=== PATIENT | male | born 1960 | race American Indian/Alaskan Native ===

== ENCOUNTER 2016-09-14 21:48 | Emergency (ER) | payer OTHER ==
--- NOTE | 2016-09-15 02:09 | Emergency Department Report ---
ED Extremity Problem HPI - General Chief complaint: Extremity Problem,Nontraumatic Stated complaint: L LEG PAIN Time Seen by Provider: 09/15/16 01:25 Source: patient, family Mode of arrival: Ambulatory Limitations: No Limitations - History of Present Illness Initial comments: Patient here reports that he has left hip pain 2 days. Denies any trauma. Patient is 10 out of 10. He said he 2 different Tylenol 3 and a little relief she also said he took ibuprofen. Denies any nausea vomiting. Denies any fall. Pain feels achy in his left hip. 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 MD Complaint: joint paint Onset/Timin -: days(s) Location: left History of Same: No -: Yes arthralgia, No fever, No associated dyspnea, No associated chest pain Severity scale (0 -10): 10 Quality: aching Consistency: intermittent Improves with: immobilization, rest Worsens with: weight bearing, walking Associated Symptoms: arthralgias. denies: chest pain, shortness of breath, fever, myalgias, rash - Related Data Previous Rx's Medication Instructions Recorded Last Taken Type HYDROcodone/APAP 5-325 [[place] 1 each PO Q6HR PRN #12 tablet 09/15/16 Unknown Rx 5/325] Ibuprofen [Motrin] 600 mg PO Q8H PRN #15 tablet 09/15/16 Unknown Rx Allergies Allergy/AdvReac Type Severity Reaction Status Date / Time No Known Allergies Allergy Unverified 09/14/16 22:17 ED Review of Systems ROS: Stated complaint: L LEG PAIN Other details as noted in HPI Comment: All other systems reviewed and negative Constitutional: denies: chills, fever ENT: denies: ear pain, throat pain Respiratory: no symptoms reported Cardiovascular: denies: chest pain, palpitations, edema, syncope Gastrointestinal: denies: abdominal pain, nausea, vomiting Musculoskeletal: arthralgia. denies: back pain, joint swelling, myalgia Skin: denies: rash Neurological: denies: headache ED Past Medical Hx - Past Medical History Previous Medical History?: No - Surgical History Past Surgical History?: No - Family History Family history: no significant - Social History Smoking Status: Current Every Day Smoker Substance Use Type: None - Medications Home Medications: Home Medications Medication Instructions Recorded Confirmed Last Taken Type HYDROcodone/APAP 5-325 [[place] 1 each PO Q6HR PRN #12 tablet 09/15/16 Unknown Rx 5/325] Ibuprofen [Motrin] 600 mg PO Q8H PRN #15 tablet 09/15/16 Unknown Rx ED Physical Exam - General Limitations: No Limitations General appearance: alert, in no apparent distress - Head Head exam: Present: atraumatic, normocephalic, normal inspection - Eye Eye exam: Present: normal appearance, PERRL. Absent: periorbital swelling, periorbital tenderness Pupils: Present: normal accommodation - Neck Neck exam: Present: normal inspection, full ROM. Absent: tenderness, meningismus, lymphadenopathy - Respiratory Respiratory exam: Present: normal lung sounds bilaterally. Absent: respiratory distress, chest wall tenderness - Cardiovascular Cardiovascular Exam: Present: regular rate, normal rhythm, normal heart sounds - GI/Abdominal GI/Abdominal exam: Present: soft, normal bowel sounds. Absent: distended, tenderness, guarding, rebound, rigid - Expanded Lower Extremity Exam Left Hip exam: Present: full ROM (patient with full range of motion but pain with abduction and abduction of left hip. He is noted to be limping.), pelvic stability. Absent: tenderness, swelling, abrasion, laceration, ecchymosis, deformity, crepidus, dislocation, erythema, external rotation, internal rotation , shortening Upper Leg exam: Present: normal inspection, full ROM. Absent: tenderness, swelling, abrasion, laceration, ecchymosis, deformity, crepidus, dislocation, erythema Knee exam: Present: normal inspection, full ROM, full knee extension. Absent: tenderness, swelling, abrasion, laceration, ecchymosis, deformity, crepidus, dislocation, erythema, effusion, pain w/ pronation/supination Lower Leg exam: Present: normal inspection, full ROM. Absent: tenderness, swelling, abrasion, laceration, ecchymosis, deformity, crepidus, dislocation, erythema, palpable cord, Yamileth's sign Ankle exam: Present: normal inspection, full ROM. Absent: tenderness, swelling , abrasion, laceration, ecchymosis, deformity, crepidus, dislocation, erythema Foot/Toe exam: Present: normal inspection, full ROM. Absent: tenderness, swelling, abrasion, laceration, ecchymosis, deformity, crepidus, dislocation, erythema, amputation, puncture wound, foreign body, calcaneal tenderness, tenderness at base of 5th metatarsal, nail avulsion, subungual hematoma Neuro vascular tendon exam: Present: no vascular compromise. Absent: pulse deficit, abnormal cap refill, motor deficit, sensory deficit, tendon deficit, extremity cold to touch, pallor, abnormal 2-point discrimination, decreased fine /light touch, foot drop, peroneal nerve deficit, significant pain with passive ROM of distal joint Gait: Positive: observed and limited by pain - Back Exam Back exam: Present: normal inspection, full ROM. Absent: tenderness, CVA tenderness (R), CVA tenderness (L), muscle spasm, paraspinal tenderness, vertebral tenderness, rash noted - Neurological Exam Neurological exam: Present: alert, oriented X3, normal gait, reflexes normal. Absent: motor sensory deficit - Psychiatric Psychiatric exam: Present: normal affect, normal mood - Skin Skin exam: Present: warm, dry, intact, normal color. Absent: rash ED Course Vital Signs 09/14/16 09/15/16 22:12 02:21 Temperature 98.8 F Pulse Rate 99 H Respiratory 18 20 Rate Blood Pressure 165/88 O2 Sat by Pulse 100 Oximetry - Reevaluation(s) Reevaluation #1: 09/15/16 04:10 Patient given Toradol 60 mg IM and emergency room to manage pain. ED Medical Decision Making - Radiology Data Radiology results: report reviewed X-ray of left hip reveals no acute findings. - Medical Decision Making ED course: Seen here complaining of left hip pain with diagnosis of arthralgia left hip. X-ray report revealed normal exam of left hip. Sclerae result to patient. He was given Toradol 60 mg IM which relieved his pain. I discussed with patient that he will need to follow-up with orthopedic doctor if he still continues to have pain in 2 days. Home with prescription for [place] and Motrin. I instructed him to rest for a couple days. Critical care attestation.: If time is entered above; I have spent that time in minutes in the direct care of this critically ill patient, excluding procedure time. ED Disposition Clinical Impression: Arthralgia of hip, left Disposition: DISCHARGED TO HOME OR SELFCARE Is pt being admited?: No Does the pt Need Aspirin: No Condition: Stable Instructions: Arthralgia (ED) Additional Instructions: Please follow up with orthopedic doctor in 2 days. [place] cause drowsiness. Do not drive or operate heavy machinery while taking this medication. Prescriptions: HYDROcodone/APAP 5-325 [[place] 5/325] 1 each PO Q6HR PRN #12 tablet PRN Reason: Pain Ibuprofen [Motrin] 600 mg PO Q8H PRN #15 tablet PRN Reason: Pain Referrals: CANDELARIA AYERS MD [Staff Physician] - 09/17/16 Forms: Accompanied Note, Work/School Release Form(ED)
[2016-09-15] MEDS: TORADOL IM ONE (02:21)
--- NOTE | 2016-09-15 02:27 | XRay Report ---
FINAL REPORT PROCEDURE: XR HIP 2-3V LT TECHNIQUE: LEFT hip radiographs, 2 views each, including AP view of the pelvis. HISTORY: Left Hip pain COMPARISON: No prior studies are available for comparison. FINDINGS: Fracture (s) and/or Dislocation(s): None . Joint space(s): Normal. Soft tissues: Normal. Bone mineralization: Normal. Foreign bodies: None. IMPRESSION: Normal Examination.
[2016-09-15 04:19] VITALS: BP 145/72
== END 2016-09-15 04:32 | disposition home or self-care (01) ==
LOC: ED 21:48
DX: M25.552 Pain in left hip (principal); F17.200 Nicotine dependence, unspecified, uncomplicated
CPT/HCPCS: 73502; 96372; 99283; J1885

== ENCOUNTER 2020-05-09 10:40 | Outpatient (CLI) | payer OTHER ==
--- NOTE | 2020-05-09 13:03 | XRay Report ---
LUMBAR SPINE 3 VIEWS INDICATION: Low back pain. COMPARISON: No relevant prior imaging study available. FINDINGS: No fracture or subluxation is seen. There is mild lower lumbar spondylosis. Alignment is within lyric l limits. IMPRESSION: 1. No acute findings. LEFT HIP AND PELVIS 2 VIEWS INDICATION: Left hip pain. COMPARISON: 09/14/2016. FINDINGS: No acute skeletal abnormality. Mild superior joint space narrowing is again noted. There appears to b e mild acetabular over coverage bilaterally which could result in some degree of pincer-type impingem ent. No osteonecrosis. IMPRESSION: 1. No acute findings. LEFT KNEE 2 VIEWS INDICATION: LEFT KNEE PAIN. COMPARISON: No relevant prior imaging study available. FINDINGS: No acute skeletal abnormality. There is mild tricompartmental joint space narrowing greatest at the m edial compartment. No joint effusion. There is mild patellar enthesopathy. IMPRESSION: 1. No acute findings. Signer Name: Jose Juan Lizarraga MD Signed: 05/09/2020 12:58 PM Workstation Name: [id number]
== END 2020-05-09 10:41 | disposition home or self-care (01) ==
LOC: XRAY 10:40
PROVIDERS: ATTEND Internal Medicine
DX: M16.12 Unilateral primary osteoarthritis, left hip (principal); M54.5 Low back pain
CPT/HCPCS: 72100

== ENCOUNTER 2020-10-13 18:43 | Emergency (ER) | payer MEDICAID, OTHER ==
[2020-10-13 19:19] VITALS: BP 165/96
[2020-10-13] MEDS ORDERED: SODIUM CHLORIDE 0.9% 1000 ML 1,000 ML IV ONE (21:09)
[2020-10-13 21:25] LABS: Basophils # (Auto) 0.1 K/mm3 (0.0-0.1); Basophils % (Auto) 1.1 % (0.0-1.8); Eosinophils % (Auto) 0.3 % (0.0-4.3); Hematocrit 46.4 % (35.5-45.6); Hemoglobin 15.6 gm/dl (11.8-15.2); Lymphocytes # (Auto) 2.5 K/mm3 (1.2-5.4); Lymphocytes % (Auto) 36.4 % (13.4-35.0); Mean Corpuscular HGB Conc 34 % (32-34); Mean Corpuscular Volume 94 fl (84-94); Monocytes # (Auto) 0.7 K/mm3 (0.0-0.8); Monocytes % (Auto) 9.9 % (0.0-7.3); Platelet Count 279 K/mm3 (140-440); Red Blood Count 4.95 M/mm3 (3.65-5.03); Red Cell Distribution Width 14.8 % (13.2-15.2)
--- NOTE | 2020-10-13 21:28 | Emergency Department Report ---
ED General Adult HPI - General Chief complaint: Skin Rash Stated complaint: LIP NUMBNESS Time Seen by Provider: 10/13/20 20:28 Source: patient Mode of arrival: Ambulatory Limitations: No Limitations - History of Present Illness Initial comments: 60-year-old F Sudanese male presents emerged department complaining of a couple day history of tenderness and pain to the cracks of his lip which is becoming more irritated for reasons that are unknown. He also states states that the areas have started tingling. He reports having a known history of hypertension and diabetes but is noncompliant at this present time and does not check his blood sugar at home does report polyuria and polydipsia but denies any chest pain, fever, chills, sweats, palpitations, headache, blurred vision. Quality: dull Consistency: constant Improves with: none Worsens with: none Associated Symptoms: denies other symptoms. denies: cough, diaphoresis, loss of appetite, malaise, nausea/vomiting, rash, shortness of breath, syncope, weakness Treatments Prior to Arrival: none - Related Data Previous Rx's Medication Instructions Recorded Last Taken Type HYDROcodone/APAP 5-325 [[place] 1 each PO Q6HR PRN #12 tablet 09/15/16 Unknown Rx 5/325] Ibuprofen [Motrin] 600 mg PO Q8H PRN #15 tablet 09/15/16 Unknown Rx Nystatin [Nystatin SUSP] 5 ml PO QID #200 ml 10/13/20 Unknown Rx amLODIPine 5 mg PO DAILY #30 tab 10/13/20 Unknown Rx metFORMIN [Glucophage] 500 mg PO BID #60 tablet 10/13/20 Unknown Rx Allergies Allergy/AdvReac Type Severity Reaction Status Date / Time No Known Allergies Allergy Unverified 09/14/16 22:17 ED Review of Systems ROS: Stated complaint: LIP NUMBNESS Other details as noted in HPI Comment: All other systems reviewed and negative ED Past Medical Hx - Past Medical History Previous Medical History?: Yes Hx Hypertension: Yes Hx Diabetes: Yes Additional medical history: stent - Social History Smoking Status: Current Some Day Smoker - Medications Home Medications: Home Medications Medication Instructions Recorded Confirmed Last Taken Type HYDROcodone/APAP 5-325 [[place] 1 each PO Q6HR PRN #12 tablet 09/15/16 Unknown Rx 5/325] Ibuprofen [Motrin] 600 mg PO Q8H PRN #15 tablet 09/15/16 Unknown Rx Nystatin [Nystatin SUSP] 5 ml PO QID #200 ml 10/13/20 Unknown Rx amLODIPine 5 mg PO DAILY #30 tab 10/13/20 Unknown Rx metFORMIN [Glucophage] 500 mg PO BID #60 tablet 10/13/20 Unknown Rx ED Physical Exam - General Limitations: No Limitations General appearance: alert, in no apparent distress - Head Head exam: Present: atraumatic, normocephalic - Eye Eye exam: Present: normal appearance, PERRL, EOMI Pupils: Present: normal accommodation - ENT ENT exam: Present: normal exam, normal orophraynx, mucous membranes moist, other (Syriac letter to the cracks of his lips airway patent tongue uvula midline. No exudate) - Neck Neck exam: Present: normal inspection, full ROM - Respiratory Respiratory exam: Present: normal lung sounds bilaterally. Absent: respiratory distress, rhonchi, chest wall tenderness - Cardiovascular Cardiovascular Exam: Present: regular rate, normal rhythm. Absent: systolic murmur, diastolic murmur, rubs, gallop - GI/Abdominal GI/Abdominal exam: Present: soft, normal bowel sounds - Rectal Rectal exam: Present: deferred - Extremities Exam Extremities exam: Present: normal inspection - Back Exam Back exam: Present: normal inspection - Neurological Exam Neurological exam: Present: alert, oriented X3 - Psychiatric Psychiatric exam: Present: normal affect, normal mood - Skin Skin exam: Present: warm, dry, intact, normal color. Absent: rash ED Course Vital Signs 10/13/20 19:17 Temperature 98.3 F Pulse Rate 108 H Respiratory 16 Rate Blood Pressure 165/96 O2 Sat by Pulse 98 Oximetry - Consultations Consultation #1: 10/13/20 22:50 Case was discussed with hospitalist who did agree to admission however this admission was later retracted above the patient had a change of heart ED Medical Decision Making - Lab Data Lab Results 10/13/20 10/13/20 10/13/20 Range/Units 21:14 21:14 21:14 WBC 6.8 (4.5-11.0) K/mm3 RBC 4.95 (3.65-5.03) M/mm3 Hgb 15.6 H (11.8-15.2) gm/dl Hct 46.4 H (35.5-45.6) % MCV 94 (84-94) fl MCH 32 (28-32) pg MCHC 34 (32-34) % RDW 14.8 (13.2-15.2) % Plt Count 279 (140-440) K/mm3 Lymph % (Auto) 36.4 H (13.4-35.0) % Geary % (Auto) 9.9 H (0.0-7.3) % Eos % (Auto) 0.3 (0.0-4.3) % Baso % (Auto) 1.1 (0.0-1.8) % Lymph # (Auto) 2.5 (1.2-5.4) K/mm3 Geary # (Auto) 0.7 (0.0-0.8) K/mm3 Eos # (Auto) 0.0 (0.0-0.4) K/mm3 Baso # (Auto) 0.1 (0.0-0.1) K/mm3 Seg Neutrophils % 52.3 (40.0-70.0) % Seg Neutrophils # 3.6 (1.8-7.7) K/mm3 VBG pH 7.349 (7.320-7.420) Sodium 121 L (137-145) mmol/L Potassium 5.3 H (3.6-5.0) mmol/L Chloride 81.7 L (98-107) mmol/L Carbon Dioxide 19 L (22-30) mmol/L Anion Gap 26 mmol/L BUN 16 (9-20) mg/dL Creatinine 1.1 (0.8-1.3) mg/dL Estimated GFR > 60 ml/min BUN/Creatinine Ratio 15 % Glucose 833 H* (75-100) mg/dL Calcium 9.4 (8.4-10.2) mg/dL Magnesium 2.00 (1.7-2.3) mg/dL Total Bilirubin 0.50 (0.1-1.2) mg/dL AST 12 (5-40) units/L ALT 21 (7-56) units/L Alkaline Phosphatase 145 H (35-129) units/L Total Protein 6.8 (6.3-8.2) g/dL Albumin 4.5 (3.9-5) g/dL Albumin/Globulin Ratio 2.0 % - Medical Decision Making 36-year-old -Sudanese male presents emerged department complaining of tingling to the left no rashes to the mouth and verbal complaints was Suspicion for hypoglycemia. Labs were obtained found to have a blood sugar of 833 and we discussed with the hospitalist his current status and plan of care. And decided on the need for admission. Please note that his his blood pressure was also also elevated and he has a strong history of noncompliance. I discussed the case with the hospitalist who accepted the admission I returned to Mr. Calles to advise him of the acceptance which had have been discussed however at this present time he expressed no further no further desire to be admitted. I was advised he would have to leave AMA The patient is oriented to person, place, and time, has the capacity to make decisions regarding the medical care offered. The patient speaks coherently and exhibits no evidence of having an altered level of consciousness or alcohol or drug intoxication to a point that would impair judgment. They respond knowingly to questions about recommended treatment and alternate treatments including no further testing or treatment; participate in diagnostic and treatment decisions by means of rational thought processes; and understand the items of minimum basic medical treatment information with respect to that treatment (the nature and seriousness of the illness, the nature of the treatment, the probable degree and duration of any benefits and risks of any medical intervention that is being recommended, and the consequences of lack of treatment, and the nature, risks, and benefits of any reasonable alternatives). I have reviewed the relevant issues with the patient. They are aware of the suspected diagnosis suggested by the medical planner including the physical, . The patient acknowledges understanding of the reasons for recommendations regarding medical treatment, medical testing, and further monitoring and observation. The recommended medical care being refused has been discussed with the patient and is coma, chronic kidney disease, kidney failure, dialysis, . The risks of refusing recommended care that were disclosed and acknowledged by the patient are loss of current lifestyle, permanent mental impairment, and . The patient understands the relevant information of the nature of their medical condition, as well as the risks, benefits, and treatment alternatives (including non-treatment), consequences of refusing care, and can competently communicate a rational explanation about their choice of care options. [Discharge instructions were provided to the patient.] The patient understands they are welcome to return to the hospital at any time to receive the recommended care or any other care at any time, regardless of their ability to pay for such care. Critical care attestation.: If time is entered above; I have spent that time in minutes in the direct care of this critically ill patient, excluding procedure time. ED Disposition Clinical Impression: Hyperglycemia, Hypertension, Angular cheilitis Disposition: - LEFT AGAINST MED ADVICE Is pt being admited?: No Does the pt Need Aspirin: Yes Condition: Undetermined Instructions: Hypertension (ED), Hyperglycemia, [id number], Hyperglycemia, Preventing Hypertension, Blood Glucose Monitoring, Adult, Hypertension, Adult Prescriptions: amLODIPine 5 mg PO DAILY #30 tab metFORMIN [Glucophage] 500 mg PO BID #60 tablet Nystatin [Nystatin SUSP] 5 ml PO QID #200 ml Referrals: PRIMARY CARE, [Primary Care Provider] - 3-5 Days TONY WILLS MD [Staff Physician] - 3-5 Days Forms: AMA Form
[2020-10-13 21:48] LABS: Alanine Aminotransferase 21 units/L (7-56); Albumin 4.5 g/dL (3.9-5); BUN/Creatinine Ratio 15; Blood Urea Nitrogen 16 mg/dL (9-20); Calcium 9.4 mg/dL (8.4-10.2); Hemolysis Index 8
[2020-10-13] MEDS ORDERED: INSULIN REGULAR, HUMAN 100 UNITS/1 ML IV ONE (22:06)
[2020-10-13 22:47] LABS: Bilirubin,Urine NEG (Negative); Blood,Urine NEG (Negative); Color,Urine Colorless (Yellow); Mucus,Urine FEW /HPF; Protein,Urine <15 mg/dL mg/dL (Negative); Urobilinogen,Urine < 2.0 mg/dL (<2.0); WBC,Urine < 1.0 /HPF (0.0-6.0)
[2020-10-13] MEDS ORDERED: ASPIRIN 81 MG TAB CHEW PO ONE (22:50)
== END 2020-10-13 23:00 | disposition left against medical advice (07) ==
LOC: ED 18:43
DX: E11.65 Type 2 diabetes mellitus with hyperglycemia (principal); I10 Essential (primary) hypertension; K13.0 Diseases of lips; F17.200 Nicotine dependence, unspecified, uncomplicated; Z79.899 Other long term (current) drug therapy
CPT/HCPCS: 36415; 80053; 81001; 82805; 82962; 83735; 85025; 96361; 96374; 99283; J7030; J1815

== ENCOUNTER 2020-12-28 05:59 | Emergency (ER) | payer SELFPAY ==
[2020-12-28 07:28] VITALS: BP 135/66
--- NOTE | 2020-12-28 08:40 | Emergency Department Report ---
ED Back Pain/Injury HPI - General Chief Complaint: Back Pain/Injury Stated Complaint: LOWER BACK PAIN Time Seen by Provider: 12/28/20 08:37 Source: patient Limitations: No Limitations - History of Present Illness Initial Comments: 60-year-old -[place] male with a history of diabetes hypertension and chronic back pain with arthritis presents to the emergency room for acute on chronic lower back pain. Patient states is been taken ibuprofen 800 mg without much relief. Patient ports that his last dose was yesterday. Patient states he is usually followed by [facility] for hypertension and diabetes. He denies any recent injuries. Patient denies any urinary symptoms and urinary incontinent. Patient states that the pain radiates down his buttocks. MD Complaint: back pain Onset/Timin -: days(s) Similar Symptoms Previously: Yes Severity scale (0 -10): 10 Improves With: supine Worsens With: sitting upright Associated Symptoms: difficulty walking - Related Data Previous Rx's Medication Instructions Recorded Last Taken Type HYDROcodone/APAP 5-325 [[place] 1 each PO Q6HR PRN #12 tablet 09/15/16 Unknown Rx 5/325] Ibuprofen [Motrin] 600 mg PO Q8H PRN #15 tablet 09/15/16 Unknown Rx Nystatin [Nystatin SUSP] 5 ml PO QID #200 ml 10/13/20 Unknown Rx amLODIPine 5 mg PO DAILY #30 tab 10/13/20 Unknown Rx metFORMIN [Glucophage] 500 mg PO BID #60 tablet 10/13/20 Unknown Rx Allergies Allergy/AdvReac Type Severity Reaction Status Date / Time No Known Allergies Allergy Unverified 09/14/16 22:17 ED Review of Systems ROS: Stated complaint: LOWER BACK PAIN Other details as noted in HPI ED Past Medical Hx - Past Medical History Previous Medical History?: Yes Hx Hypertension: Yes Hx Diabetes: Yes Additional medical history: stent , Hx of CAD - Surgical History Past Surgical History?: No - Social History Smoking Status: Current Every Day Smoker Substance Use Type: None - Medications Home Medications: Home Medications Medication Instructions Recorded Confirmed Last Taken Type HYDROcodone/APAP 5-325 [[place] 1 each PO Q6HR PRN #12 tablet 09/15/16 Unknown Rx 5/325] Ibuprofen [Motrin] 600 mg PO Q8H PRN #15 tablet 09/15/16 Unknown Rx Nystatin [Nystatin SUSP] 5 ml PO QID #200 ml 10/13/20 Unknown Rx amLODIPine 5 mg PO DAILY #30 tab 10/13/20 Unknown Rx metFORMIN [Glucophage] 500 mg PO BID #60 tablet 10/13/20 Unknown Rx ED Physical Exam - General Limitations: No Limitations General appearance: alert, in no apparent distress - Head Head exam: Present: atraumatic, normocephalic - Eye Eye exam: Present: normal appearance - ENT ENT exam: Present: normal external ear exam - Neck Neck exam: Present: normal inspection, full ROM - Respiratory Respiratory exam: Absent: respiratory distress, accessory muscle use - Cardiovascular Cardiovascular Exam: Present: regular rate - Extremities Exam Extremities exam: Present: normal inspection, full ROM - Back Exam Back exam: Present: full ROM - Expanded Back Exam Expanded Back exam: Sciatic Notch Tenderness: Left, Right - Neurological Exam Neurological exam: Present: alert, oriented X3 - Psychiatric Psychiatric exam: Present: normal affect, normal mood - Skin Skin exam: Present: warm, dry, intact, normal color. Absent: rash ED Course Vital Signs 12/28/20 07:24 Temperature 99 F Pulse Rate 77 Respiratory 20 Rate Blood Pressure 135/66 O2 Sat by Pulse 99 Oximetry ED Medical Decision Making - Medical Decision Making 60-year-old -[place] male with a history of diabetes hypertension and chronic back pain with arthritis presents to the emergency room for acute on chronic lower back pain. Patient states is been taken ibuprofen 800 mg without much relief. Patient ports that his last dose was yesterday. Patient states he is usually followed by [facility] for hypertension and diabetes. He denies any recent injuries. Patient denies any urinary symptoms and urinary incontinent. Patient states that the pain radiates down his buttocks. Toradol 30 mg IM given in the left deltoid. Patient tolerated well. Discussed the patient is to follow-up with a pain specialist and a back specialist. Patient verbalized understanding Critical care attestation.: If time is entered above; I have spent that time in minutes in the direct care of this critically ill patient, excluding procedure time. ED Disposition Clinical Impression: Chronic back pain greater than 3 months duration Disposition: TO HOME OR SELFCARE Is pt being admited?: No Does the pt Need Aspirin: No Condition: Stable Instructions: Facet Syndrome, Chronic Back Pain, [id number] Additional Instructions: Recommend continue with ibuprofen Tylenol increase your fluid intake and follow- up with a back specialist. Referrals: RODRICK CUADRA II, MD [Staff Physician] - 3-5 Days [facility] [Provider Group] - 3-5 Days Time of Disposition: 09:04
[2020-12-28] MEDS ORDERED: KETOROLAC 30 MG/1 ML INJ IM ONE (08:44)
== END 2020-12-28 09:23 | disposition home or self-care (01) ==
LOC: ED 05:59
DX: M54.9 Dorsalgia, unspecified (principal); G89.29 Other chronic pain; I10 Essential (primary) hypertension; E11.9 Type 2 diabetes mellitus without complications; I25.10 Atherosclerotic heart disease of native coronary artery without angina pectoris; F17.200 Nicotine dependence, unspecified, uncomplicated; Z79.899 Other long term (current) drug therapy
CPT/HCPCS: 96372; 99282; J1885